=== PATIENT | male | born 1940 | race Two or more races ===

== ENCOUNTER 2023-03-16 09:59 | Inpatient (IN) | payer OTHER ==
[~2023-03-16] VITALS: Ht 172.7 cm; Wt 63.5 kg
[2023-03-16] MEDS ORDERED: ATORVASTATIN CA40 MG PO (11:12)
[2023-03-16] MEDS ORDERED: GLIMEPIRIDE2 M1 PO (11:12)
[2023-03-16] MEDS ORDERED: TENORMIN50 M1 PO (11:12)
[2023-03-16] MEDS ORDERED: LOSARTAN POTASS50 MG PO (11:12)
[2023-03-16] MEDS ORDERED: AMLODIPINE-OLM1 EAC2 PO (11:12)
[2023-03-16 15:02] LABS: HEMATOCRIT 46.8 % (39.0-48.0); MEAN CELL VOLUME 91.5 fL (80.0-100.00); MEAN CORPUSCULAR HEMOGLOBIN 31.4 pg (27.00-32.0); MEAN CORPUSCULAR HGB CONC 34.3 g/dl (32.0-36.0); PLATELET COUNT 231 K/uL (150-450); RED BLOOD COUNT 5.11 M/uL (4.00-6.00)
[2023-03-16 15:07] LABS: PH,URINE 6.5 (5.0-8.0); URINE APPEARANCE Clear; URINE BILIRRUBIN Negative (NEGATIVE); URINE BLOOD Negative; URINE COLOR Yellow; URINE GLUCOSE Negative (NEGATIVE); URINE LEUKOCYTE Negative; URINE NITRATE Negative; URINE PROTEIN Negative (NEGATIVE)
[2023-03-16 15:10] LABS: URINE BACTERIA 26.4 uL (0.0-1933); URINE EPITHELIAL CELLS 1.5 uL (0.0-38.8)
[2023-03-16 15:18] LABS: URINE RBC 1.5 uL (0.0-20.8)
[2023-03-16 15:23] LABS: CREATININE SERUM 0.87 mg/dL (0.70-1.30); GFR 84.43; POTASSIUM 4.09 mEq/L (3.5-5.1)
[2023-03-16 22:37] LABS: D DIMER 2.11 MG/L; INR 1.09; PARTIAL THROMBOPLASTIN TIME 29.3 SECONDS (22.0-34.0); PROTHROMBIN TIME 11.4 SECONDS (9.0-11.5)
[2023-03-16 22:40] LABS: ABG PH 7.444 (7.35-7.45); ABG PO2 71.6 mmHg (80-100); BASE EXCESS -1.6 mmol/l; BICARBONATE 21.4 mmol/l (23-25); SaO2 94.8 %; Tco2 22.4 mmol/l; allen test SATISFACTORY; puncture site RADIAL LEFT
[2023-03-16 22:41] LABS: o2 21 %
[2023-03-16 23:22] LABS: PH,URINE 5.5 (5.0-8.0); URINE APPEARANCE Clear; URINE BILIRRUBIN Negative (NEGATIVE); URINE BLOOD Negative; URINE COLOR Yellow; URINE GLUCOSE Negative (NEGATIVE); URINE LEUKOCYTE Negative; URINE NITRATE Negative; URINE PROTEIN Negative (NEGATIVE)
[2023-03-16 23:26] LABS: URINE BACTERIA 17.6 uL (0.0-1933); URINE EPITHELIAL CELLS 2.6 uL (0.0-38.8); URINE RBC 3.8 uL (0.0-20.8); URINE WBC 10.1 uL (0.0-23.2)
[2023-03-17] MEDS ORDERED: MEMANTINE HCL5 MG (09:50)
[2023-03-17] MEDS ORDERED: DONEPEZIL HCL10 MG (09:50)
[2023-03-20 07:09] LABS: HEMATOCRIT 46.1 % (39.0-48.0); HEMOGLOBIN 15.9 g/dL (13-16.00); MEAN CELL VOLUME 92.8 fL (80.0-100.00); MEAN CORPUSCULAR HGB CONC 34.5 g/dl (32.0-36.0); PLATELET COUNT 303 K/uL (150-450); RED BLOOD COUNT 4.97 M/uL (4.00-6.00); RED CELL DISTRIBUTION WIDTH 13.9 % (11.5-14.5)
[2023-03-20 07:13] LABS: CALCIUM 8.7 mg/dL (8.5-10.1); CREATININE SERUM 0.94 mg/dL (0.70-1.30); GFR 77.22; POTASSIUM 4.06 mEq/L (3.5-5.1)
== END 2023-03-20 16:07 | disposition home or self-care (01) | DRG 186 ==
LOC: ER 10:00 → SEC-K 19:32 → ICU 19:32 → MEDJ 20:21 → ICU-2 21:34 → ICU 03-17 04:25 → MEDJ 03-18 20:37
PROVIDERS: General Practice; ADMIT Internal Medicine; ATTEND Internal Medicine
PROC: BB24ZZZ Computerized Tomography (CT Scan) of Bilateral Lungs (ICD-10-PCS; principal; 2023-03-16)
PROC: B246ZZZ Ultrasonography of Right and Left Heart (ICD-10-PCS; 2023-03-16)
PROC: 3E0F7GC Introduction of Other Therapeutic Substance into Respiratory Tract, Via Natural or Artificial Opening (ICD-10-PCS; 2023-03-16)
PROC: 02HV33Z Insertion of Infusion Device into Superior Vena Cava, Percutaneous Approach (ICD-10-PCS; 2023-03-18)
PROC: 4A12X4Z Monitoring of Cardiac Electrical Activity, External Approach (ICD-10-PCS; 2023-03-19)
DX: J90 Pleural effusion, not elsewhere classified (principal); I50.21 Acute systolic (congestive) heart failure; I11.0 Hypertensive heart disease with heart failure; R06.09 Other forms of dyspnea; R09.02 Hypoxemia; N18.9 Chronic kidney disease, unspecified; G30.9 Alzheimer's disease, unspecified; F02.80 Dementia in other diseases classified elsewhere, unspecified severity, without behavioral disturbance, psychotic disturbance, mood disturbance, and anxiety